=== PATIENT | male | born 1970 | race Caucasian/White ===

== ENCOUNTER 2021-12-28 10:55 | Outpatient (CLI) | payer BC, SELFPAY ==
--- NOTE | 2021-12-28 13:17 | W.ANESCHARGE ---
Anesthesia Charges Start Date/Time Anesthesia Start Date: 12/28/21 Anesthesia Start Time: 11:50 Stop Date/Time Anesthesia Stop Date: 12/28/21 Anesthesia Stop Time: 12:57 Summary Emergency: No
--- NOTE | 2021-12-28 16:03 | W.ANESCHARGE ---
Anesthesia Charges Start Date/Time Anesthesia Start Date: 12/28/21 Anesthesia Start Time: 11:50 Stop Date/Time Anesthesia Stop Date: 12/28/21 Anesthesia Stop Time: 12:57 Summary Emergency: No
== END 2021-12-28 10:56 | disposition home or self-care (01) ==
LOC: OP CLINIC 10:57
PROVIDERS: PCP Family Medicine; Visit Provider Surgery
DX: Z12.11 Encounter for screening for malignant neoplasm of colon (principal); K64.8 Other hemorrhoids; K63.5 Polyp of colon; K64.4 Residual hemorrhoidal skin tags; K57.30 Diverticulosis of large intestine without perforation or abscess without bleeding; Z83.71 Family history of colonic polyps; K22.89 Other specified disease of esophagus; K44.9 Diaphragmatic hernia without obstruction or gangrene; K21.00 Gastro-esophageal reflux disease with esophagitis, without bleeding; K31.89 Other diseases of stomach and duodenum; R13.10 Dysphagia, unspecified
CPT/HCPCS: 43239; 45381; 45385; 813; 88305; J2704

== ENCOUNTER 2022-01-08 10:46 | Outpatient (CLI) | payer BC, SELFPAY ==
[2022-01-08 12:20] LABS: Chloride* 100 mmol/L (96-114); Potassium* 3.5 mmol/L (3.6-5.1); Sodium* 138 mmol/L (135-149)
[2022-01-08 12:22] LABS: Creatinine* 0.8 mg/dL (0.5-1.5); Estimated Glomerular Filt Rate 106 ml/min
[2022-01-08 12:23] LABS: Blood Urea Nitrogen* 14 mg/dL (7-30); Calcium* 9.3 mg/dL (8.4-10.6); Carbon Dioxide* 26 mmol/L (20-32); Glucose* 109 mg/dL (60-115)
== END 2022-01-08 10:47 | disposition home or self-care (01) ==
LOC: NFLDREF 10:47
PROVIDERS: PCP Family Medicine; Visit Provider Family Medicine
DX: I10 Essential (primary) hypertension (principal)
CPT/HCPCS: 80048

== ENCOUNTER 2022-07-09 13:51 | Outpatient (CLI) | payer BC, SELFPAY | END 2022-07-09 13:52 | disposition home or self-care (01) | PROVIDERS: PCP Family Medicine; Visit Provider Internal Medicine | DX: R30.9 Painful micturition, unspecified (principal); N40.0 Benign prostatic hyperplasia without lower urinary tract symptoms; Z12.5 Encounter for screening for malignant neoplasm of prostate | CPT/HCPCS: 84153; 87086 ==

== ENCOUNTER 2022-12-17 11:50 | Outpatient (CLI) | payer BC, SELFPAY | END 2022-12-17 11:51 | disposition home or self-care (01) | LOC: NFLDREF 12-18 12:04 | PROVIDERS: PCP Family Medicine; Referring Provider Family Medicine; Visit Provider Family Medicine | DX: E78.5 Hyperlipidemia, unspecified (principal); R53.83 Other fatigue; R63.5 Abnormal weight gain | CPT/HCPCS: 80053; 80061; 82607; 84403; 84443 ==

== ENCOUNTER 2023-01-22 08:38 | Outpatient (CLI) | payer BC, SELFPAY | END 2023-01-22 08:39 | disposition home or self-care (01) | LOC: NFLDREF 01-24 14:17 | PROVIDERS: PCP Family Medicine; Referring Provider Family Medicine; Visit Provider Family Medicine | DX: E87.6 Hypokalemia (principal); R53.83 Other fatigue; R68.82 Decreased libido | CPT/HCPCS: 80048; 84270; 84402; 84403 ==

== ENCOUNTER 2023-03-06 11:17 | Outpatient (CLI) | payer BC, SELFPAY | END 2023-03-06 11:18 | disposition home or self-care (01) | LOC: NFLDREF 11:20 | PROVIDERS: PCP Family Medicine; Visit Provider Family Medicine | DX: I10 Essential (primary) hypertension (principal); E78.5 Hyperlipidemia, unspecified | CPT/HCPCS: 80048 ==

== ENCOUNTER 2023-03-11 09:28 | Outpatient (CLI) | payer BC, SELFPAY ==
--- NOTE | 2023-03-11 11:16 | W.ANESCHARGE ---
Anesthesia Charges Start Date/Time Anesthesia Start Date: 03/11/23 Anesthesia Start Time: 10:40 Stop Date/Time Anesthesia Stop Date: 03/11/23 Anesthesia Stop Time: 11:11
--- NOTE | 2023-03-11 11:17 | W.ANESCHARGE ---
Anesthesia Charges Start Date/Time Anesthesia Start Date: 03/11/23 Anesthesia Start Time: 10:40 Stop Date/Time Anesthesia Stop Date: 03/11/23 Anesthesia Stop Time: 11:11
== END 2023-03-11 09:29 | disposition home or self-care (01) ==
LOC: OP CLINIC 09:29
PROVIDERS: PCP Family Medicine; Visit Provider Surgery
DX: Z86.010 Personal history of colon polyps (principal); Z98.890 Other specified postprocedural states
CPT/HCPCS: 00811; 00812; 45378; J2704

== ENCOUNTER 2023-04-19 07:46 | Outpatient (CLI) | payer BC, SELFPAY | END 2023-04-19 07:47 | disposition home or self-care (01) | LOC: RAD 07:46 | PROVIDERS: PCP Family Medicine; Visit Provider Internal Medicine | DX: I77.810 Thoracic aortic ectasia (principal) | CPT/HCPCS: 93306 ==